=== PATIENT | male | born 1960 | race African-American/Black ===

== ENCOUNTER 2019-05-02 10:59 | Inpatient (IN) | payer OTHER ==
[~2019-05-02] VITALS: Ht 165.1 cm; Wt 77.1 kg
[~2019-05-02 10:59] MED LIST: ADULT LOW DOSE81 MG PO; AMLODIPINE BESY10 MG PO; ATACAND32 MG PO; COLACE 100 MG100 MG PO; DERMOLATE ANTI-I2 GM TP; FERRO-TIME325 MG PO; HYDROCHLOROTHIA25 M1 PO; IBUPROFEN 800800 M1 PO; K-DUR 20 MEQ T20 MEQ PO; LAC-HYDRIN225 GM TP; LOPROX120 ML TP; MECLIZINE 25 MG25 M1 PO; MIRALAX255 GM PO; NIZORAL120 ML TP; NORFLEX100 MG PO; OMEPRAZOLE20 MG PO; PLAVIX 75 MG TA75 MG PO; TYLENOL EXTRA500 MG PO; ZEASORB AF TP; [UNRECOGNIZED DRUG - OTHER] TP
[2019-05-02 11:00] VITALS: BP 132/97
[2019-05-02] MEDS ORDERED: COZAAR 25 MG TA25 M1 PO (11:22)
[2019-05-02] MEDS ORDERED: METAMUCIL1 EAC1 PO (11:23)
[2019-05-02] MEDS ORDERED: OMEPRAZOLE 20 M20 M1 PO (11:24)
[2019-05-02] MEDS ORDERED: NAPROSYN500 MG PO (11:25)
[2019-05-02] MEDS ORDERED: SERTRALINE HCL50 MG PO (11:25)
[2019-05-02] MEDS ORDERED: GABAPENTIN 100100 MG PO (11:26)
[2019-05-02] MEDS ORDERED: ZONISAMIDE 100100 M1 PO (11:28)
[2019-05-02 11:34] LABS: ABSOLUTE NEUTROPHILS 2.2 thou/uL (1.4-8.2); BASOPHILS 0.7 % (0.0-2.0); EOSINOPHILS 2.8 % (0.0-3.0); HEMATOCRIT 38.9 % (42.0-52.0); HEMOGLOBIN 12.6 gm/dL (14.0-18.0); LYMPHOCYTES 25.2 % (24.0-44.0); MCH 27.9 pg (26.0-34.0); MCHC 32.5 g/dL (28.0-37.0); MCV 85.8 fL (80.0-100.0); MONOCYTES 9.5 % (1.0-8.0); POLYS 61.8 % (36.0-66.0); RBC 4.53 mil/uL (4.50-6.00); RDW 13.3 % (10.5-14.5); WBC 3.5 thou/uL (4.0-11.0)
[2019-05-02 11:38] LABS: ANION GAP 11 mmol/L (7-16); BUN 31 mg/dL (7-18); CALCIUM 9.3 mg/dL (8.5-10.1); CHLORIDE 104 mmol/L (98-107); CO2 26 mmol/L (21-32); CREATININE 1.6 mg/dL (0.7-1.3); GLUCOSE 95 mg/dL (74-106); POTASSIUM 3.7 mmol/L (3.5-5.1); SODIUM 141 mmol/L (136-145)
[2019-05-02 11:49] LABS: ALBUMIN 4.1 g/dL (3.4-5.0); MAGNESIUM 2.2 mg/dL (1.8-2.4); SGOT 20 U/L (15-37); SGPT 31 U/L (30-65); TOTAL BILIRUBIN 0.3 mg/dL (<0.1-1.0); TOTAL PROTEIN 7.4 g/dL (6.4-8.2); TROPONIN-I <0.06 ng/mL (<0.06)
[2019-05-02 12:14] LABS: PLATELET COUNT 176 thou/uL (150-400)
[2019-05-02 13:13] LABS: URINE BILIRUBIN NEGATIVE (Negative); URINE BLOOD NEGATIVE (Negative); URINE CLARITY CLEAR; URINE COLOR YELLOW; URINE GLUCOSE-RANDOM* NEGATIVE (Negative); URINE KETONES NEGATIVE (Negative); URINE LEUKOCYTES-REFLEX NEGATIVE (Negative); URINE NITRITE-REFLEX NEGATIVE (Negative); URINE PROTEIN (DIPSTICK) NEGATIVE (Negative); URINE SPECIFIC GRAVITY 1.015 (1.005-1.035); URINE UROBILINOGEN 0.2 E.U./dl (0.2-1.0)
[2019-05-02 13:21] LABS: AMP/METHAMP Negative (Negative); BARBITURATES Negative (Negative); BENZODIAZEPINES Negative (Negative); COCAINE Negative (Negative); METHADONE Negative (Negative); OPIATES Negative (Negative); PCP Negative (Negative)
[2019-05-02 13:34] VITALS: BP 153/95
[2019-05-02 13:56] VITALS: BP 153/95
[2019-05-02 14:19] VITALS: BP 157/86
--- NOTE | 2019-05-02 15:15 | EKG ---
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[place] : 1960 Requested By: Amari Roque Order Number: [id number] MD: Romel Doyle Measurements Intervals [place] Rate: 65 P: 44 VA: 132 QRS: -30 QRSD: 97 T: 43 QT: 420 QTc: 437 Interpretive Statements Sinus rhythm Left axis deviation Nonspecific T wave abnormality Compared to ECG 01/09/2004 10:53:16 Sinus bradycardia no longer present Electronically Signed On 05-02-2019 15:15:24 CDT by Romel Doyle [email or web address] <ELECTRONICALLY SIGNED> By: Romel Doyle MD, [facility] 05/02/19 1515 1153 1153 Romel Doyle MD, [facility] /EPI
[2019-05-02 19:57] VITALS: BP 148/87
--- NOTE | 2019-05-02 20:22 | NUR ---
Admitted on the floor due to pneumonia, transferred to bed safely. With known diagnosis of MR. Pt with caregiver when he arrived in the floor. On room air. With SL at R AC- IVF resumed as ordered. Able to ambulate with A01 using walker and gait belt. With minimal swelling on bilat lower extremities. Able to use urinal to pass urine. Falls risk- falls bundle in place. Assisted in ADLs, caregiver ordered on pt's behalf from dietary for patient's meal today until tomorrow. Verified with pharmacy re: Miralax prescription as pyxis is giving out the 238 bottle, prescription modified by pharmacy staff. Pt's caregiver mentioned this PM re: time of some of the medications the pt are taking at the long term- Dr Juarez informed and said may modify time of pt's meds as how he is taking it at home. Vital signs stable. On blood sugar monitoring- taken and recorded accordingly, with insulin sliding scale prescribed. Pt seen by ST- no aspiration noted upon assessment. To continue monitoring.
--- NOTE | 2019-05-03 04:05 | NUR ---
PATIENT ALERT AND ORIENTED TO SELF AND KNOWING HE IS IN THE HOSPITAL. COOPERATIVE WITH CARE. INCONTINENT OF URINE. IVF INFUSING W/O COMPLICATION. BS MONITORED PER ORDER. THIS NURSE RETURNED A CALL FROM "LILY" WHO IS AT PATIENTS SNF AND GAVE HER AN UPDATE. LILY STATED THAT SHE WILL BE HERE TO SEE THE PATIENT TODAY. ANDREW WAS HAPPY TO HEAR THIS NEWS. PATIENT RESTING QUIETLY THROUGHOUT THE NIGHT. WILL MONITOR.
[2019-05-03 04:47] VITALS: BP 153/101
[2019-05-03 07:58] VITALS: BP 143/93
--- NOTE | 2019-05-03 11:03 | NUR ---
Received awake on bed. Due medications given as prescribed, able to swallow tablets w/o difficulty. A+O to self. On room air. On blood sugar monitoring- taken and recorded accordingly. Pt able to use urinal to pass urine. AO1 using walker and gait belt with moderate to minimum assist. With IV at R AC- NS at 75cc/hr infusing well. Vital signs stable. Assisted in ADLs.
[2019-05-03 16:23] VITALS: BP 149/96
[2019-05-03 20:23] VITALS: BP 146/84
[2019-05-04 09:48] VITALS: BP 150/96
[2019-05-04 19:40] VITALS: BP 150/100
--- NOTE | 2019-05-04 20:40 | NUR ---
Assumed pt care this am, MR is noted but able to communicate and is pleasant. Uses the urinal and eats all of his meals, hydration encouraged and was tolerated well. VS stable, pt took a bath earnest little supervision this afternoon. Pt denied any pain or SOA. POC followed, no signs or verbalizatons of distress have been noted.
[2019-05-05 04:05] VITALS: BP 150/103
--- NOTE | 2019-05-05 04:33 | NUR ---
PATIENT ALERT AND ORIENTED TO SELF AND PLACE. COOPERATIVE WITH CARE. DENIES PAIN. BS MONITORED PER ORDER. IVF INFUSING W/O COMPLICATION. AM NURSE GIVEN LAXATIVE FOR CONSTIPATION, HOWEVER, NO RESULTS AT THIS TIME. WILL MONITOR.
[2019-05-05 08:00] VITALS: BP 151/110
--- NOTE | 2019-05-05 10:22 | NUR ---
Received awake on bed. Due medications given as prescribed. A+O, with MR, pt is pleasant and cooperative with care. Vital signs stable. On blood sugar monitoring- taken and recorded accordingly, with Sliding scale insulin prescribed. On room air. With IV of NS at 75cc/hr, infusing well at R upper arm. With mild edema noted on lower extremities, legs kept elevated. Assisted in ADLs. Pt keen to go home today, a/w discharge orders. Vital signs stable.
[2019-05-05 11:12] LABS: HEMATOCRIT 39.8 % (42.0-52.0); HEMOGLOBIN 12.9 gm/dL (14.0-18.0); MCHC 32.4 g/dL (28.0-37.0); MCV 86.6 fL (80.0-100.0); RBC 4.6 mil/uL (4.50-6.00); RDW 13.7 % (10.5-14.5); WBC 3.1 thou/uL (4.0-11.0)
[2019-05-05 11:19] LABS: CALCIUM 9.8 mg/dL (8.5-10.1); CREATININE 1.3 mg/dL (0.7-1.3); POTASSIUM 3.7 mmol/L (3.5-5.1)
--- NOTE | 2019-05-05 11:59 | NUR ---
PT ADMITTED RELATED TO PNEUMONIA. CM REVIEWED CHART AND SPOKE WITH CARE TEAM. CHART INDICATES THAT PT RESIDES IN A INTERMEDIATE. PT RESIDES AT [facility] INTERMEDI[facility] IN [place]. 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 CHART INDICATES THAT GOES TO WORKSHOP DURING THE WEEK. CARE TEAM INDICATED THAT PT IS MEDICALLY STABLE TO DC BACK TO GROUP THIS DAY. CM CALLEDPT'S SISTER AND LEFT A VM. CM CALLED PT'S CAREGIVER DIANN AND SHE INDICATED THEY ARE ABLE TO ACCEPT PT BACK AND THAT THEY WILL PROVIDE TRANSPORT HOME. THEY REQUESTED A CHART COPY AND THAT ORDERS BE FACED TO ONCE COMPLETED. CM TO FOLLOW INDICATED WITH DC PLANNING TODAY.
[2019-05-05] MEDS ORDERED: CEFUROXIME500 MG PO (13:54)
[2019-05-05 14:17] VITALS: BP 151/110
--- NOTE | 2019-05-05 14:40 | NUR ---
DISCHARGE PLANNING. PATIENT IS MEDICALLY READY FOR DISCHARGE TODAY. HOME HEALTH RECOMMENDED AT DISCHARGE. REFERRAL FOR HH FAXED TO [facility], PER REQUEST. VERIFIED REFERRAL RECEIVED. AWAITING RESPONSE. FOLLOWING.
--- NOTE | 2019-05-05 15:07 | NUR ---
CM CALLED PT'S CAREGIVERS [facility] AND FAXED ORDERS OVER. THEY INDICATED THAT THEY NEED THEIR NURSE TO REVIEW DC MEDS AND THEY WILL THEN ARRANGE TO COME AND PICK PT UP. CHART COPY MADE. CM TO FOLLOW INDICATED WITH DC PLANNING.
== END 2019-05-05 17:26 | disposition home health service (06) | DRG 193 ==
LOC: ER 10:59 → 4W 13:42 → EROBS 13:42 → 4W 13:59
PROVIDERS: Emergency Medicine; Internal Medicine; ADMIT Hospitalist
DX: J18.9 Pneumonia, unspecified organism (principal); N17.0 Acute kidney failure with tubular necrosis; I10 Essential (primary) hypertension; F32.9 Major depressive disorder, single episode, unspecified; I73.9 Peripheral vascular disease, unspecified; R07.9 Chest pain, unspecified; F79 Unspecified intellectual disabilities; G40.409 Other generalized epilepsy and epileptic syndromes, not intractable, without status epilepticus; Z88.8 Allergy status to other drugs, medicaments and biological substances; Z79.899 Other long term (current) drug therapy; Z79.82 Long term (current) use of aspirin
CPT/HCPCS: 10040

== ENCOUNTER 2019-05-17 17:30 | Emergency (ER) | payer OTHER ==
[~2019-05-17] VITALS: Ht 165.1 cm; Wt 77.1 kg
[~2019-05-17 17:30] MED LIST changes: +CEFUROXIME500 MG PO; +COZAAR 25 MG TA25 M1 PO; +GABAPENTIN 100100 MG PO; +METAMUCIL1 EAC1 PO; +NAPROSYN500 MG PO; +OMEPRAZOLE 20 M20 M1 PO; +SERTRALINE HCL50 MG PO; +ZONISAMIDE 100100 M1 PO
[2019-05-17] MEDS ORDERED: PLAVIX 75 MG TA75 M1 PO (17:45)
[2019-05-17] MEDS ORDERED: NAPROSYN500 M1 PO (17:47)
[2019-05-17] MEDS ORDERED: MILK OF MA400 MG/5 M PO (17:48)
[2019-05-17 17:55] LABS: URINE BILIRUBIN NEGATIVE (Negative); URINE BLOOD NEGATIVE (Negative); URINE CLARITY CLEAR; URINE COLOR YELLOW; URINE GLUCOSE-RANDOM* NEGATIVE (Negative); URINE KETONES NEGATIVE (Negative); URINE LEUKOCYTES NEGATIVE (Negative); URINE NITRITE NEGATIVE (Negative); URINE PROTEIN (DIPSTICK) NEGATIVE (Negative); URINE UROBILINOGEN 0.2 E.U./dl (0.2-1.0)
[2019-05-17 18:00] LABS: ABSOLUTE NEUTROPHILS 1.6 thou/uL (1.4-8.2); BASOPHILS 0.9 % (0.0-2.0); EOSINOPHILS 3.3 % (0.0-3.0); HEMATOCRIT 39.3 % (42.0-52.0); HEMOGLOBIN 12.5 gm/dL (14.0-18.0); LYMPHOCYTES 37.9 % (24.0-44.0); MCH 27.8 pg (26.0-34.0); MCHC 31.9 g/dL (28.0-37.0); MCV 87.2 fL (80.0-100.0); PLATELET COUNT 181 thou/uL (150-400); POLYS 48.9 % (36.0-66.0); RDW 13.4 % (10.5-14.5); WBC 3.2 thou/uL (4.0-11.0)
[2019-05-17 18:07] LABS: CALCIUM 9.7 mg/dL (8.5-10.1); CREATININE 1.5 mg/dL (0.7-1.3); POTASSIUM 3.7 mmol/L (3.5-5.1)
[2019-05-17 18:18] LABS: TOTAL BILIRUBIN 0.3 mg/dL (<0.1-1.0); TOTAL PROTEIN 7.2 g/dL (6.4-8.2)
[2019-05-17 21:33] VITALS: BP 158/95
--- NOTE | 2019-05-18 10:55 | EKG ---
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
== END 2019-05-17 21:15 ==
LOC: ER 17:30
PROVIDERS: Emergency Medicine
DX: R10.31 Right lower quadrant pain (principal); R11.10 Vomiting, unspecified; I10 Essential (primary) hypertension; F32.9 Major depressive disorder, single episode, unspecified; M19.90 Unspecified osteoarthritis, unspecified site; Z88.8 Allergy status to other drugs, medicaments and biological substances